=== PATIENT | female | born 1980 | race Caucasian/White ===

== ENCOUNTER → 2020-02-18 09:35 | Outpatient (BNVA) | payer OTHER, SELFPAY | PROVIDERS: Family Provider Family Medicine; Visit Provider Family Medicine | DX: Z20.828 Contact with and (suspected) exposure to other viral communicable diseases (principal) | CPT/HCPCS: 87635 ==

== ENCOUNTER → 2020-02-21 11:42 | Outpatient (BNVA) | payer OTHER, SELFPAY | PROVIDERS: Family Provider Family Medicine; Visit Provider Family Medicine | DX: Z11.59 Encounter for screening for other viral diseases (principal) | CPT/HCPCS: 87635 ==

== ENCOUNTER 2020-10-02 13:21 | Emergency (ER) | payer OTHER, SELFPAY ==
[2020-10-02 13:42] VITALS: BP 122/84; PULSE 83; RESP 16; TEMP 36.8; O2SAT 98; BMI 33.2
[2020-10-02 14:43] VITALS: BP 123/79; PULSE 81; O2SAT 100
--- NOTE | 2020-10-02 14:56 | W.ED.HA ---
HPI - Headache General: Chief Complaint: Headache Stated Complaint: headache Time Seen by Provider: 10/02/20 14:32 Source: patient, family, RN notes reviewed and old records reviewed Mode of arrival: ambulatory Limitations: no limitations History of Present Illness: HPI Narrative: Patient is a 40-year-old female with a history of migraines. She presents to the emergency department with complaint of a headache that is typical for her migraine but more severe than usual. Symptoms started this morning and it is frontal and radiates to the occipital region. She has nausea and vomiting, associated photo phobia and noise also makes it worse. She has taken 1 tablet of Imitrex with no improvement in her symptoms she is therefore here to be evaluated. MD elicited complaint: migraine Onset (ago): hour(s) Onset description: suddenly Location: frontal Severity: severe Quality & Timing: throbbing, constant, progressively worsening and similar to previous headaches Exacerbating factors: light and noise Relieving factors: nothing Context: occurred at rest Associated symptoms: Reports nausea, photophobia, sound sensitivity and vomiting; Deny chest pain, confusion, cough, diaphoresis, eye pain, eye redness, fever(s), lightheadedness, loss of vision, malaise, neck stiffness, numbness, paresthesias, pre-syncope, rash, seizures, short of breath, syncope or weakness Treatments prior to arrival: none Review of Systems General: Reports: 10 or more systems reviewed and unremarkable except in HPI and below Const: Denies: fever(s), malaise or diaphoresis Card: Denies: chest pain, lightheadedness, syncope or pre-syncope GI: Reports: nausea and vomiting Skin/Breast: Denies: rash Neuro: Denies: confusion PFSH ED PFSH: Social History (Reviewed 10/02/20 @ 15:12 by Lincoln Bernardo MD, [facility] [place]) Smoking and tobacco status: never smoked Alcohol intake: current Alcohol intake frequency: holidays/special occasions only Physical Exam Const: COMMON NORMALS: no acute distress, average body habitus, patient oriented x3, no limitations, healthy appearing, alert and well nourished HENMT: COMMON NORMALS: normocephalic, atraumatic and moist oral mucous membranes HEAD & SCALP: normocephalic and atraumatic Eye: COMMON NORMALS: Equal, round and reactive pupils present, EOMs intact bilaterally, conjunctivae normal and no scleral icterus CONJUNCTIVA: Yes conjunctivae normal PUPIL: Yes Equal, round and reactive pupils present DIRECT OPHTHALMOSCOPY: Yes photophobia Neck/C-Spine: COMMON NORMALS: no meningeal signs and no JVD Resp: COMMON NORMALS: normal respiratory effort, No retractions, No use of accessory muscles, clear to auscultation bilaterally and percussion normal AUSCULTATION: clear to auscultation bilaterally PERCUSSION: percussion normal Cardio: COMMON NORMALS: no JVD, regular rate, regular rhythm, S1 normal heart sound present, S2 normal heart sound present, No gallops present (Cardio), No clicks present (Cardio), No murmurs present (Cardio), No rub (Cardio) and Peripheral pulses 2+ throughout RATE: regular rate RHYTHM: regular rhythm HEART SOUNDS: S1 normal heart sound present and S2 normal heart sound present PERIPHERAL PULSES: Peripheral pulses 2+ throughout GI: COMMON NORMALS: Normal to inspection, nondistended, normoactive bowel sounds present, Soft to palpation, non-tender, No hepatosplenomegaly present, no masses and no bruits PALPATION: Yes Soft to palpation and Yes No hepatosplenomegaly present Extremity: COMMON NORMALS: normal to inspection, full ROM, capillary refill normal, no calf tenderness and no pedal edema Neuro: COMMON NORMALS: patient oriented x3 SENSORIUM/ORIENTATION: Yes alert MENINGEAL SIGNS: Yes no meningeal signs Skin: COMMON NORMALS: no rashes or lesions noted, no wounds, turgor normal, no jaundice, no petechiae and no mottling GENERAL SKIN EXAM: no rashes or lesions noted and turgor normal Course Vital Signs: Vital signs: Vital Signs Temperature 98.3 F 10/02/20 13:42 Pulse Rate 81 10/02/20 14:43 Respiratory Rate 16 10/02/20 13:42 Blood Pressure 123/79 10/02/20 14:43 Pulse Oximetry 100 10/02/20 14:43 MDM - Headache MDM Narrative: Medical decision making narrative: 40-year-old female patient with a history of migraines who presented to the emergency department with migraines. After my evaluation I ordered medications to see if that would help with her migraines, however the the patient was apparently upset with the nurse that she did not start her IV before another patient and left AGAINST MEDICAL ADVICE. I did not get a chance to talk to her to see if we could make her stay for treatment of her migraine. Medical Records: Attestation: I reviewed the patient's medical records. Discharge Plan Discharge Patient Disposition: Left Against Medical Advice Clinical Impression: Migraine Prescriptions: No Action alprazolam [Xanax] 0.25 mg tablet 0.25 mg PO TID PRNRF: 0 Referrals: Blayne Pennington MD [Primary Care Provider] - Coding Level of Care Code ED Superintendent Laundry for Chg Fwd Exam Comprehensive
--- NOTE | 2020-10-02 15:32 | PC.NURSE ---
patient refuses IV and with discussion doesnt want IM injections either. she states she just wants to leave. I attempted service recovery and patient continues to state she just wants to leave. Dr Bernardo is notified and an AMA is signed
== END 2020-10-02 15:34 | disposition left against medical advice (07) ==
PROVIDERS: Emergency Provider Family Medicine; PCP Family Medicine
DX: G43.909 Migraine, unspecified, not intractable, without status migrainosus (principal); Z53.21 Procedure and treatment not carried out due to patient leaving prior to being seen by health care provider
CPT/HCPCS: 99283

== ENCOUNTER 2021-05-29 14:38 | Outpatient (CLI) | payer OTHER, SELFPAY ==
--- NOTE | 2021-05-29 15:15 | MR_ITS ---
WS: [id number] MRI CERVICAL SPINE NONCONTRAST HISTORY: M54.2 - Cervicalgia COMPARISON: 11/03/2010 Technique: Multiplanar, multisequence noncontrast imaging of the cervical spine. Straightening of the normal cervical lordosis. Similar to the prior study. Disc spaces and vertebral body heights are well-maintained. No fractures or edema. Signal within the cervical cord is normal. Visualized posterior fossa is unremarkable. Craniocervical junction, C1 and C2 relationship, odontoid process and soft tissues are normal. C2-C3: Normal. C3-C4: Normal. C4-C5: Normal. C5-C6: Normal. C6-C7: Normal. C7-T1: Normal. Paraspinal soft tissue are normal. MR/MR cervical spin wo con* [id number] IMPRESSION: 1. No significant disc protrusion or stenosis. 2. Very mild straightening of the normal cervical spine may be due to position ing or some muscle spasm. No change since the prior study.
== END 2021-05-29 14:39 | disposition home or self-care (01) ==
PROVIDERS: PCP Family Medicine; Visit Provider Orthopaedic Surgery
DX: M54.2 Cervicalgia (principal)
CPT/HCPCS: 72141

== ENCOUNTER → 2022-09-24 08:42 | Outpatient (BNVA) | payer OTHER, SELFPAY | PROVIDERS: PCP Family Medicine; Visit Provider Clinical Nurse Specialist Adult Health | DX: E16.2 Hypoglycemia, unspecified (principal); R63.5 Abnormal weight gain; R61 Generalized hyperhidrosis | CPT/HCPCS: 80053; 83036; 84436; 84443; 84481; 85025 ==

== ENCOUNTER → 2024-06-03 10:26 | Outpatient (BNVA) | payer BC, SELFPAY | PROVIDERS: PCP Family Medicine; Visit Provider Registered Nurse Neonatal Intensive Care | DX: S90.30XA Contusion of unspecified foot, initial encounter (principal); W18.41XA Slipping, tripping and stumbling without falling due to stepping on object, initial encounter | CPT/HCPCS: 73630 ==

== ENCOUNTER 2024-08-15 06:59 | Outpatient (CLI) | payer BC, SELFPAY ==
--- NOTE | 2024-08-15 07:15 | MR_ITS ---
WS: [id number] MRI RIGHT SHOULDER NONCONTRAST TECHNIQUE: Sagittal T2, coronal T1, T2 and proton density imaging. Axial gradient PDE imaging. CLINICAL INFORMATION: shoulder injury COMPARISON: 2019 FINDINGS: Progressed moderate degenerative arthritis AC joint with small amount of fluid and edema. Subacromial spurring. Impingement on the distal supraspinatus with a small amount of subacromial subdeltoid fluid. Normal infraspinatus. Tiny interstitial tear supraspinatus deep to the acromion. Progressed mild chronic thinning of the supraspinatus. Normal infraspinatus. Normal teres minor. Normal subscapularis. Normal biceps tendon in the bicipital groove. Biceps labral anchor appears intact. Intra- articular biceps tendon appears intact. MR/MR shoulder RT wo con* [id number] IMPRESSION: 1. Progressed moderate degenerative arthritis AC joint with moderate downslopi ng acromion. Subacromial spurring impinges the distal supraspinatus. 2. Progressed chronic thinning of the supraspinatus with tendinopathy and tiny interstitial tear. No tendon retraction. 3. Rotator cuff otherwise appears intact. 4. Biceps tendon appears intact within the bicipital groove. 5. Biceps labral anchor appears intact. 6. No other acute findings.
== END 2024-08-15 07:00 | disposition home or self-care (01) ==
LOC: RAD 07:02
PROVIDERS: PCP Family Medicine; Visit Provider Family Medicine
DX: S49.91XA Unspecified injury of right shoulder and upper arm, initial encounter (principal); M19.011 Primary osteoarthritis, right shoulder; X58.XXXA Exposure to other specified factors, initial encounter
CPT/HCPCS: 73221

== ENCOUNTER → 2024-09-04 14:54 | Outpatient (BNVA) | payer BC, SELFPAY | PROVIDERS: PCP Family Medicine; Visit Provider Student in an Organized Health Care Education/Training Program | DX: M75.101 Unspecified rotator cuff tear or rupture of right shoulder, not specified as traumatic (principal); M19.019 Primary osteoarthritis, unspecified shoulder; M75.81 Other shoulder lesions, right shoulder | CPT/HCPCS: 73030 ==

== ENCOUNTER → 2024-10-15 08:37 | Outpatient (BNVA) | payer BC, SELFPAY | PROVIDERS: PCP Family Medicine; Visit Provider Family Medicine | DX: R51.9 Headache, unspecified (principal) | CPT/HCPCS: 86003; 86008 ==

== ENCOUNTER → 2024-11-09 08:23 | Outpatient (BNVA) | payer BC, SELFPAY | PROVIDERS: PCP Family Medicine; Visit Provider Family Medicine | DX: R73.03 Prediabetes (principal); Z00.00 Encounter for general adult medical examination without abnormal findings | CPT/HCPCS: 80053; 80061; 83036; 84443; 85025 ==

== ENCOUNTER 2024-12-13 08:49 | Day surgery (SDC) | payer BC, SELFPAY ==
[2024-12-13] VITALS (10 sets, daily range): BP systolic 104–159; BP diastolic 50–105; PULSE 66–82; RESP 14–20; TEMP 36.1–36.3; O2SAT 94–98; BMI 35.7
[2024-12-13] MEDS: ondansetron 2 mg/ML SDV 2 mL 4 MG IVP ×2 (09:32→13:48)
[2024-12-13] MEDS: acetaminophen 1,000 MG/100 ML PIGGYBACK 400 MG IV (09:35)
--- NOTE | 2024-12-13 09:40 | P.ANESASSM_ITS ---
Pre-Anesthetic Assessment Height/Weight: Height 5 ft Weight 183 lb Temp Pulse Resp BP Pulse Ox O2 Del Method 97.4 F L 81 16 159/105 95 Room Air 12/13/24 09:05 12/13/24 09:05 12/13/24 09:05 12/13/24 09:05 12/13/24 09:05 12/13/24 09:05 Preop Diagnosis: Rotator cuff tear Operation Date: 12/13/24 10:50 Proposed Procedures p Shoulder DIagnostic and Surgical Arthroscopy(Right) - Chao Kehinde, DO s Subacromial Decompression(Right) - Chao [place], DO s Acromioclavicular (AC) Joint Resection(Right) - Chao Kehind[place], DO s POSSIBLE Rotator Cuff Debridement Vs. Repair(Right) - Chao Kehinde, DO s POSSIBLE Biceps Tenotomy vs. Tenodesis(Right) - Chao Kehinde, DO Was Beta Juan David taken within 24 hours: N/A Was Clonidine taken within 24 hours: N/A Last intake: Intake Last Liquid Date 12/12/24 Last Liquid Time 23:00 Last Solid Date 12/12/24 Last Solid Time 18:00 Social No alcohol and No tobacco Exam alert, oriented x 3, clear to auscultation bilaterally and regular rate & rhythm Airway Submandibular: within normal limits Cervical ROM: within normal limits Mallampati: Class III Dentition: full Anesthetic Plan ASA status: 3 Anesthesia: General and Regional (specify below) Other: No prior issues with anesthesia NPO since yesterday evening Denies any cardiac or pulmonary issues however preop BP 159/105 LEESA, no treatment Anxiety Labs from 11/09/2024 reviewed acceptable for procedure Plan for GETA with preoperative block Medications/Allergies Home Medications ?Medication ?Instructions ?Recorded ?Confirmed ?Last Taken ?Type alprazolam 0.25 mg tablet (Xanax) 0.25 mg PO TID PRN A nxiety 07/30/20 12/13/24 Unknown History auto titrating c-pap 6-16 #1 ea 07/24/24 12/13/24 Unkn own Rx hydroxyzine HCl 10 mg tablet 10 mg PO TID PRN itching #30 tabs 10/04/24 12/13/24 Unknown Rx escitalopram oxalate 10 mg tablet 10 mg PO DAILY #30 t abs 11/13/24 12/13/24 12/12/24 Rx (Lexapro) Allergies Allergy/AdvReac Type Severity Reaction Status Date / Time prochlorperazine (From Allergy Severe angioedema Verified 11/06/24 12:59 Compazine) tramadol (From Ultram) Allergy Severe ADR-skin Verified 11/06/24 12:59 itching adhesive Allergy swelling Verified 11/06/24 12:59 Alpha-Gal Allergy ADR-Itching Verified 12/12/24 10:39 (Awuftyehx-Okcnw-0,3-Gala [facility] Anesthesia Medical History (Updated 11/13/24 @ 09:43 by Blayne Pennington MD) Prediabetes Diaphoresis Weight gain Minor depression Generalized anxiety disorder Migraines Surgical History Hx of exploratory laparotomy Hx of hysterectomy Hx of cholecystectomy Hx of lipoma Family History Other Cancer Hypertension Social History Smoking and tobacco/nicotine status: never used tobacco/nicotine Alcohol intake: former Substance/Drug Use: never
--- NOTE | 2024-12-13 09:57 | W.PM.OPSFHP ---
Same Day Surgery H&P Indication for Procedure/HPI DATE OF PROCEDURE: December 13, 2024 CHIEF COMPLAINT/INDICATIONFOR SURGICAL PROCEDURE: Right shoulder AC joint arthritis, subacromial impingement, rotator cuff tear partial PREOP DIAGNOSIS: Right shoulder AC joint arthritis, subacromial impingement, rotator cuff te PLANNED PROCEDURE: Operation Date: 12/13/24 10:50 Proposed Procedures p Shoulder DIagnostic and Surgical Arthroscopy(Right) - Chao Colemanatt, DO s Subacromial Decompression(Right) - Chao Colemanatt, DO s Acromioclavicular (AC) Joint Resection(Right) - Chao [place], DO s POSSIBLE Rotator Cuff Debridement Vs. Repair(Right) - Chao Colemanatt, DO s POSSIBLE Biceps Tenotomy vs. Tenodesis(Right) - Chao Colemanatt, DO Medications/Allergies* Home Medications ?Medication ?Instructions ?Recorded ?Confirmed ?Type alprazolam 0.25 mg tablet (Xanax) 0.25 mg PO TID PRN Anxiety 07/30/20 12/13/24 History Allergies/Adverse Reactions Allergy/AdvReac Type Severity Reaction Status Date / Time prochlorperazine (From Allergy Severe angioedema Verified 11/06/24 12:59 Compazine) tramadol (From Ultram) Allergy Severe ADR-skin Verified 11/06/24 12:59 itching adhesive Allergy swelling Verified 11/06/24 12:59 Alpha-Gal Allergy ADR-Itching Verified 12/12/24 10:39 (Khlusgkfc-Jwdeg-9,3-Gala Current Medications: Generic Name Dose Route Start Last Admin Trade Name Freq PRN Reason Stop Dose Admin Sodium Chloride 1,000 mls @ 30 mls/hr 12/13/24 09:00 12/13/24 09:31 Sodium Chloride 0.9% IV 12/14/24 08:59 30 mls/hr .Q24H BERRY Administration Ondansetron HCl 4 mg 12/13/24 08:56 12/13/24 09:32 Ondansetron 2 Mg/Ml Sdv 2 Ml IVP 4 mg Q5M PRN Administration NAUSEA AND VOMITING Pertinent History/Comorbid Conditions* Medical History (Updated 11/13/24 @ 09:43 by Blayne Pennington MD) Prediabetes Diaphoresis Weight gain Minor depression Generalized anxiety disorder Migraines Surgical History (Updated 08/18/23 @ 08:23 by Vicente Daniels NP) Hx of exploratory laparotomy Hx of hysterectomy Hx of cholecystectomy Hx of lipoma Family History (Updated 09/24/22 @ 08:24 by Vicente Daniels NP) Cancer Hypertension Social History Smoking and tobacco/nicotine status: never used tobacco/nicotine Alcohol intake: former Substance/Drug Use: never Pertinent Exam Findings alert, oriented x 3, operative site marked and procedure specific exam findings Please refer to anesthesia preoperative valuation for heart and lung findings Please refer to detailed orthopedic examination on 11/06/2024 listed below: Right Shoulder Exam: -Normal Cervical spine ROM -positive Spurling's -Full active and passive ROM -Pain with Archie's 4+, give way with weakness -Pain with ER with elbows at the side -strength ER 4/5 and IR 5/5 -Positive Hawkin's impingement -Positive [place]ap[place]'s -Positive Speed's -Positive crossover arm Neer's test -TTP over AC joint and anterior shoulder -TTP posterior shoulder -Positive Tinel's over cubital tunnel Recommendations Risks and benefits of procedure reviewed and Patient/family agree to proceed Surgery/Procedure today Other Plans: Plan to proceed to the OR today for right shoulder diagnostic and surgical arthroscopy with subacromial decompression, acromioclavicular joint resection, possible rotator cuff debridement versus repair, possible biceps tenotomy versus tenodesis. Patient understands the ins and outs of procedure the risk benefits complication alternatives of surgical nonsurgical treatment options. Understanding risk of surgery patient like to proceed with surgical invention. All questions answered at this time Coding Level of Care Code Acute Code for [facility] Fwd
--- NOTE | 2024-12-13 10:00 | ANES.PROC ---
Anesthesia Procedures Procedure/Date: 12/13/24 Nerve Block ^: Nerve Block 1: Main Anesthesia: other (100 mcg fentanyl and 2 mg Versed) Time Out Performed: Yes Consent: requested by attending/covering physician and from patient Laterality: Right Nerve block location: interscalene Anesthesia monitors applied: pulse oximetry, EKG, BP cuff and oxygen Nerve block position: supine Anesthetic Used: ropivicaine 0.5% Amount of anesthesia used (mL): 30 Ultrasound used to: recognize landmarks Nerve Stimulator Used?: Yes Interscalene/Femoral BLK: other needle (pjunk 4inch) Injection: neg aspiration of heme Patient Tolerated Procedure: well Complications: none Additional Comments: Decadron 4 mg added to block
[2024-12-13] MEDS: ceFAZolin 2,000 MG in sodium chloride 0.9% (plus) 50 ML 100 MG IV (10:06)
--- NOTE | 2024-12-13 12:04 | P.BOP_ITS ---
Date of Procedure: [December 13, 2024] Surgeon: [Dr. Busby DO] Expanded Duty Dental Assistant(s): [Berto Busby PA-C] Procedure(s) performed: [Right shoulder diagnostic surgical arthroscopy. Subscapularis debridement Labral debridement Subacromial decompression AC joint resection] Findings of the procedure(s): [Right shoulder glenohumeral joint arthritis grade 1?2, labral partial tearing, subscapularis partial tearing, subacromial bursitis and AC joint resection. Procedure went well and as planned.] Estimated blood loss: [10 mL] Specimen(s) removed: [N/A] Post-operative diagnosis: [Right shoulder glenohumeral joint arthritis grade 1?2, labral partial tearing, subscapularis partial tearing, subacromial bursitis and AC joint resection.]
--- NOTE | 2024-12-13 12:04 | P.OP_ITS ---
Operative Report Date of procedure: December 13, 2024 Surgeon: Chao Busby DO Asphalt Screed Operator: Berto Busby PA-C: PA was necessary for assistance in this case with shoulder positioning to execute the procedure, assistance with instrumentation, as well as implant fixation when necessary, assist with wound closure and dressing application. Procedure: Preoperative diagnosis: Right shoulder AC joint arthritis, subacromial impingement, rotator cuff tear partial Post-op diagnosis: Right shoulder glenohumeral joint arthritis grade 1?2, labral partial tearing, subscapularis partial tearing, subacromial bursitis and AC joint resection. Procedure done: Right?shoulder?diagnostic and surgical arthroscopy with subscapularis/rotator cuff debridement Right?shoulder?diagnostic and surgical arthroscopy labral debridement Right?shoulder?diagnostic and surgical arthroscopy acromioclavicular joint resection Right?shoulder?diagnostic and surgical arthroscopy subacromial decompression (acromioplasty and bursectomy) Surgeon: Chao Busby DO Estimated blood loss: 10mL IV fluids: See anesthesia record Implants: none Complications: None Condition: stable Disposition: same day Brief History: Patient been seen and worked up in the outpatient setting for?right?shoulder?pain.? Pt had an MRI which showed findings below.? Patient's failed conservative treatment and has weakness.? We talked about treatment options far as nonoperative and operative intervention.? We talked about risk benefits complication alternatives surgical nonsurgical treatment options.? Understanding risk of surgery she agrees to proceed with surgical intervention.? All questions have been answered at this time.? Patient elects proceed with surgery and consent obtained in the preoperative holding area for right shoulder diagnostic and surgical arthroscopy with subacromial decompression, acromioclavicular joint resection, possible rotator cuff debridement versus repair, possible biceps tenotomy versus tenodesis. MR/MR shoulder RT wo con* [id number] IMPRESSION: 1. Progressed moderate degenerative arthritis AC joint with moderate downsloping acromion. Subacromial spurring impinges the distal supraspinatus. 2. Progressed chronic thinning of the supraspinatus with tendinopathy and tiny interstitial tear. No tendon retraction. 3. Rotator cuff otherwise appears intact. 4. Biceps tendon appears intact within the bicipital groove. 5. Biceps labral anchor appears intact. 6. No other acute findings. Procedure: Patient seen evaluated in the preoperative holding area.? Consent reviewed and signed with patient.? Once again reviewed patient's MRI results as well as? planned surgical intervention.? Correct extremity marked.? Patient seen evaluated by anesthesia department received regional anesthesia.? Once ready for surgery was taken back to the operative suite.? Patient then subsequently underwent anesthesia per the anesthesia department was transported onto the OR table.? Patient was then placed into a lateral decubitus position with a beanbag and was appropriately secured to the bed.? All bony prominences well-padded.? Patient then had the?right?upper extremity was then prepped and draped in standard orthopedic fashion.? Patient received appropriate preoperative antibiotics.? Final timeout performed. The?right?upper extremity was then held in hanging from traction utilizing sterile technique.? Next started with standard diagnostic and surgical arthroscopy with posterior portal position introduced arthroscope into the glenohumeral joint.? Visualized the glenohumeral joint I then introduced a spinal needle within the rotator cuff interval to confirm appropriate anterior portal placement.? Once this was confirmed I then made my small incision and then introduced my arthroscopic shaver into the glenohumeral joint.? After thorough debridement patient was found to have intact superior labral complex as well as bicep tendon anchor there is no inflammation or instability of the bicep tendon as a result this was left alone no tenotomy or tenodesis was performed. Next I evaluated the subscapularis tendon which was intact which is partial tearing on the articular surface this is gently debrided with arthroscopic shaver. No repair needed or performed. ?Next there was posterior and superior labral partial tearing/fraying apprec iated I subsequently utilized a arthroscopic shaver and thermal wand to perform a labral debridement.? This point time I then visualized the glenohumeral joint.? The glenohumeral joint was found to have grade 1-2? chondromalacia throughout.? Axillary pouch was free of loose bodies from viewing the posterior portal.? Next a visualized the rotator cuff superiorly and there was found to be intact with no evidence of tear. This completed my work within the glenohumeral joint all fluid was suctioned free of the joint.? ?Next I reintroduced the arthroscope posteriorly.? And went to the subacromial space.? I established my lateral working portal. Thermal wand was then introduced laterally and then I subsequently performed extensive bursectomy of the subacromial space.? Patient had a large anterior bone spur.? At this point time I proceeded with my AC joint resection thermal wand was used and track to the anterior edge of the acromion and then tracked all the way to the AC joint.? Once identified the AC joint this was very arthritic in nature.? Thermal wand was placed anteriorly to establish appropriate plane for AC joint resection.? Once appropriate margins and anterior inferior and anterior capsule was released I then introduced arthroscopic shaver and a bur and performed AC joint resection of both the acromion to cope plane at the AC joint and a distal clavicle resection was then performed totaling 1 cm in size and was confirmed.? This completed my AC joint resection and I then introduced the arthroscopic shaver laterally while continuing to view posteriorly.? I then performed an acromioplasty to complete my subacromial decompression prior to evaluating the rotator cuff. Patient was found to have no evidence of rotator cuff tear shoulder was taken through extensive range of motion and thoroughly inspected and probed there was no full-thickness rotator cuff tear or appreciable bursal sided tear. ?I then switched the arthroscope to the lateral portal to confirm once again no rotator cuff tear from a different angle of view. ?Next I then introduced the arthroscopic shaver posteriorly to complete my subacromial decompression appropriate complaining all the way up to the lateral edge of the acromion.? This completed the surgery.? All fluid was suctioned from the?shoulder.? All instruments were removed.? The lateral incision was then closed with nylon stitches.? As well as the portal sites closed with portal nylon stitches.? Xeroform 4 x 4's ABD and tape was then applied to the?right?shoulder?and was placed into a? sling. Patient was then awakened from anesthesia and then taken back to PACU in stable condition.? Patient tolerated procedure without any issues. Disposition: Patient taken back in stable condition recovering well.? Dressings on in place clean dry and intact.? Will be nonweightbearing to the?right?upper extremity. Patient to follow-up with Ortho in the office in 2 weeks.? Patient will receive appropriate discharge instruction as well as pain medication postoperatively.? All questions answered.? We will contact the office for any questions or concerns.
--- NOTE | 2024-12-13 12:14 | PM.PACU ---
PACU note Narrative: Patient is a 43-year-old female that just underwent a right shoulder arthroscopy. Patient transferred to PACU in stable condition. Pain is well controlled. shoulder Dressing on , dry and in place. Patient's operative arm is in a shoulder immobilizer. Patient is awake and alert and able to respond to my questions accordingly. Patient's fingers are warm with good perfusion. Normal cap refill under 2 seconds. Unable to assess further range of motion in arm due to sling. Unable to assess sensation due to residual localized anesthetic. Exam: somnolent, arousable Disposition: discharged
--- NOTE | 2024-12-13 12:57 | PC.NURSE ---
pt received from PACU at 1229 for Phase 2 care for discharge. Pt was sleepy but would respond to verbal questions. Pt stated she was cold so this nurse placed 2 warm blankets while the INTERNET MARKETING ASSISTANT brought family to the room. The pt conveyed to family it felt like she could not breath. O2 was immediately placed and anesthesia was notified. Anesthesia ordered a nebulizer treatment with racemic epinephrine. pt given treatment and stated that she was breathing better when questioned. Anesthesia then ordered a duoneb treatment to compliment the racemic epinephrine pt vitals are stable pt is also more awake and is speaking with family.
--- NOTE | 2024-12-13 14:12 | ANE.PACU2 ---
Inpatient post-anesthesia follow up: Airway intact: Yes Vital signs: Temperature 97.2 F Pulse Rate 82 Respiratory Rate 20 Blood Pressure 104/75 Pulse Oximetry 96 Oxygen Delivery Me thod Room Air Oxygen Flow Rate 3 Fraction of Inspir ed Oxygen Hydration adequate: Yes Nausea and vomiting: No Pain level: 1 Mental status: Baseline Additional Comments: Patient initially had a bronchospasm and phase 2. Racemic epinephrine nebulizer given. DuoNeb given. Patient was doing much better shortly after. SpO2 adequate prior to discharge
== END 2024-12-13 14:12 | disposition home or self-care (01) ==
PROVIDERS: PCP Family Medicine; Visit Provider Student in an Organized Health Care Education/Training Program
PROC: (CPT 29805; principal; 2024-12-13 10:30)
PROC: (CPT 29826; 2024-12-13 10:30)
PROC: (CPT 23120; 2024-12-13 10:30)
PROC: (CPT 29823; 2024-12-13 10:30)
DX: M19.011 Primary osteoarthritis, right shoulder (principal); M75.41 Impingement syndrome of right shoulder; M75.111 Incomplete rotator cuff tear or rupture of right shoulder, not specified as traumatic; S43.431A Superior glenoid labrum lesion of right shoulder, initial encounter; X58.XXXA Exposure to other specified factors, initial encounter; M75.51 Bursitis of right shoulder; Z91.014 Allergy to mammalian meats; R73.03 Prediabetes; F41.8 Other specified anxiety disorders; G47.33 Obstructive sleep apnea (adult) (pediatric)
CPT/HCPCS: 29823; 29824; J0131; J0169; J0690; J1100; J1885; J2250; J2405; J3010; J7030; J9999

== ENCOUNTER 2025-01-05 21:11 | Emergency (ER) | payer BC, SELFPAY ==
[2025-01-05 21:13] VITALS: BP 163/91; PULSE 81; RESP 16; TEMP 36.6; O2SAT 98
--- OUTSIDE RECORDS SUMMARY | 2025-01-05 21:18 | XMS_ITS | Encounter Summary ---
Author Organization [facility] Address [address] [place] [address] Care Team Providers Care Certified Hand Therapist Name Role Phone Unavailable Primary Care Provider Unavailabl e Encounter Details Date Type Department Care Team (Latest Contact Info) Description 06/22/2006 Outpatient Historical [facility] OBDARLENEN-Baez [place] Arnie [address] [place] [address] Russell Denise MD [address] [phone] Supervision of Other Normal (Primary Dx) Social History Tobacco Use Types Packs/Day Years Used Date Smoking Tobacco: Never Assessed Comments Unknown Sex and Gender Information Value Date Recorded Sex Assigned at Not on file Legal Sex Female 4:03 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
--- OUTSIDE RECORDS SUMMARY | 2025-01-05 21:18 | XMS_ITS | Encounter Summary ---
Author Organization [facility] Address [address] [place] [address] Care Team Providers Care Cloud Architect Name Role Phone Unavailable Primary Care Provider Unavailabl e Encounter Details Date Type Department Care Team (Latest Contact Info) Description 12/27/2005 Outpatient Historical [facility] OBDARLENEN-Nestor [place] Arnie [address] [place] [address] Russell Denise MD [address] [phone] Routine Gynecological Examination (Primary Dx) Social History Tobacco Use Types Packs/Day Years Used Date Smoking Tobacco: Never Assessed Comments Unknown Sex and Gender Information Value Date Recorded Sex Assigned at Not on file Legal Sex Female 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
--- OUTSIDE RECORDS SUMMARY | 2025-01-05 21:18 | XMS_ITS | Encounter Summary ---
Author Organization [facility] Address [address] [place] [address] Care Team Providers Care Housesmith Name Role Phone Unavailable Primary Care Provider Unavailabl e Encounter Details Date Type Department Care Team (Latest Contact Info) Description 11/16/2004 Outpatient Historical [facility] OBDARLENEN-Nestor [place] Arnie [address] [place] [address] Russell Denise MD [address] [phone] SUPERVIS OTHER NORMAL PREG (Primary Dx) Social History Tobacco Use Types Packs/Day Years Used Date Smoking Tobacco: Never Assessed Comments Unknown Sex and Gender Information Value Date Recorded Sex Assigned at Not on file Legal Sex Female 4: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
--- OUTSIDE RECORDS SUMMARY | 2025-01-05 21:18 | XMS_ITS | Encounter Summary ---
Author Organization [facility] Address [address] [place] [address] Care Team Providers Care Assistant Child Care Teacher Name Role Phone Unavailable Primary Care Provider Unavailabl e Encounter Details Date Type Department Care Team (Latest Contact Info) Description 12/07/2004 Outpatient Historical [facility] OBDARLENEN-Baez [place] Arnie [address] [place] [address] Russell Denise MD [address] [phone] SUPERVIS OTHER NORMAL PREG (Primary Dx) Social History Tobacco Use Types Packs/Day Years Used Date Smoking Tobacco: Never Assessed Comments Unknown Sex and Gender Information Value Date Recorded Sex Assigned at Not on file Legal Sex Female 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
--- OUTSIDE RECORDS SUMMARY | 2025-01-05 21:18 | XMS_ITS | Encounter Summary ---
Author Organization [facility] Address [address] [place] [address] Care Team Providers Care Wind Turbine Engineer Name Role Phone Unavailable Primary Care Provider Unavailabl e Encounter Details Date Type Department Care Team (Latest Contact Info) Description 07/06/2006 Outpatient Historical [facility] OBDARLENEN-Baez [place] Arnie [address] [place] [address] Russell Denise MD [address] [phone] Supervision of Other Normal (Primary Dx) Social History Tobacco Use Types Packs/Day Years Used Date Smoking Tobacco: Never Assessed Comments Unknown Sex and Gender Information Value Date Recorded Sex Assigned at Not on file Legal Sex Female 4:03 AM HELP DESK COORDINATOR Gender Identity Not on file Sexual Orientation Not on file documented as of this encounter Plan of Treatment Not on file documented as of this encounter Visit Diagnoses Diagnosis Supervision of other normal - Primary documented in this encounter
--- OUTSIDE RECORDS SUMMARY | 2025-01-05 21:18 | XMS_ITS | Encounter Summary ---
Author Organization [facility] Address [address] [place] [address] Care Team Providers Care Nurseryman Assistant Name Role Phone Unavailable Primary Care Provider Unavailabl e Encounter Details Date Type Department Care Team (Latest Contact Info) Description 09/21/2004 Outpatient Historical [facility] OBDARLENEN-Baez [place] Arnie [address] [place] [address] Russell Denise MD [address] [phone] SUPERVIS OTHER NORMAL PREG (Primary Dx) Social History Tobacco Use Types Packs/Day Years Used Date Smoking Tobacco: Never Assessed Comments Unknown Sex and Gender Information Value Date Recorded Sex Assigned at Not on file Legal Sex Female 4: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
--- OUTSIDE RECORDS SUMMARY | 2025-01-05 21:18 | XMS_ITS | Encounter Summary ---
Author Organization [facility] Address [address] [place] [address] Care Team Providers Care Teacher Of The Deaf Name Role Phone Unavailable Primary Care Provider Unavailabl e Encounter Details Date Type Department Care Team (Latest Contact Info) Description 09/05/2006 Outpatient Historical [facility] OBDARLENEN-Baez [place] Arnie [address] [place] [address] Russell Denise MD [address] [phone] Routine Follow-Up (Primary Dx) Social History Tobacco Use Types Packs/Day Years Used Date Smoking Tobacco: Never Assessed Comments Unknown Sex and Gender Information Value Date Recorded Sex Assigned at Not on file Legal Sex Female 4:03 AM SHIRT PRESSER Gender Identity Not on file Sexual Orientation Not on file documented as of this encounter Plan of Treatment Not on file documented as of this encounter Visit Diagnoses Diagnosis Routine follow-up- Primary documented in this encounter
--- OUTSIDE RECORDS SUMMARY | 2025-01-05 21:18 | XMS_ITS | Encounter Summary ---
Author Organization [facility] Address [address] [place] [address] Care Team Providers Care Anthropometrist Name Role Phone Unavailable Primary Care Provider Unavailabl e Encounter Details Date Type Department Care Team (Latest Contact Info) Description 12/14/2004 Outpatient Historical [facility] OBDARLENEN-Baez [place] Arnie [address] [place] [address] Russell Denise MD [address] [phone] SUPERVIS OTHER NORMAL PREG (Primary Dx) Social History Tobacco Use Types Packs/Day Years Used Date Smoking Tobacco: Never Assessed Comments Unknown Sex and Gender Information Value Date Recorded Sex Assigned at Not on file Legal Sex Female 4: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
--- OUTSIDE RECORDS SUMMARY | 2025-01-05 21:18 | XMS_ITS | Encounter Summary ---
Author Organization [facility] Address [address] [place] [address] Care Team Providers Care Chemical Processing Laborer Name Role Phone Unavailable Primary Care Provider Unavailabl e Encounter Details Date Type Department Care Team (Latest Contact Info) Description 12/23/2004 Outpatient Historical [facility] OBDARLENEN-Baez [place] Arnie [address] [place] [address] Russell Denise MD [address] [phone] SUPERVIS OTHER NORMAL PREG (Primary Dx) Social History Tobacco Use Types Packs/Day Years Used Date Smoking Tobacco: Never Assessed Comments Unknown Sex and Gender Information Value Date Recorded Sex Assigned at Not on file Legal Sex Female 4:03 AM LADLE LINER HELPER Gender Identity Not on file Sexual Orientation Not on file documented as of this encounter Plan of Treatment Not on file documented as of this encounter Visit Diagnoses Diagnosis Supervision of other normal - Primary documented in this encounter
--- OUTSIDE RECORDS SUMMARY | 2025-01-05 21:18 | XMS_ITS | Encounter Summary ---
Author Organization [facility] Address [address] [place] [address] Care Team Providers Care Nut Former Name Role Phone Unavailable Primary Care Provider Unavailabl e Encounter Details Date Type Department Care Team (Latest Contact Info) Description 06/29/2004 Outpatient Historical [facility] OBDARLENEN-Baez [place] Arnie [address] [place] [address] Russell Denise MD [address] [phone] SUPERVIS OTHER NORMAL PREG (Primary Dx) Social History Tobacco Use Types Packs/Day Years Used Date Smoking Tobacco: Never Assessed Comments Unknown Sex and Gender Information Value Date Recorded Sex Assigned at Not on file Legal Sex Female 4:03 AM MAINTENANCE CONTROLLER Gender Identity Not on file Sexual Orientation Not on file documented as of this encounter Plan of Treatment Not on file documented as of this encounter Visit Diagnoses Diagnosis Supervision of other normal - Primary documented in this encounter
--- OUTSIDE RECORDS SUMMARY | 2025-01-05 21:18 | XMS_ITS | Encounter Summary ---
Author Organization [facility] Address [address] [place] [address] Care Team Providers Care Mold Capper Name Role Phone Unavailable Primary Care Provider Unavailabl e Encounter Details Date Type Department Care Team (Latest Contact Info) Description 07/25/2006 Outpatient Historical [facility] Russell Denise MD [address] [address] Other Threatened Labor, Antepartum (Primary Dx) Social History Tobacco Use Types Packs/Day Years Used Date Smoking Tobacco: Never Assessed Comments Unknown Sex and Gender Information Value Date Recorded Sex Assigned at Not on file Legal Sex Female 4:[address] Gender Identity Not on file Sexual Orientation Not on file documented as of this encounter Plan of Treatment Not on file documented as of this encounter Visit Diagnoses Diagnosis Other threatened labor, antepartum- Primary documented in this encounter
--- OUTSIDE RECORDS SUMMARY | 2025-01-05 21:18 | XMS_ITS | Encounter Summary ---
Author Organization [facility] Address [address] [place] [address] Care Team Providers Care Power Electronics Research Engineer Name Role Phone Unavailable Primary Care Provider Unavailabl e Encounter Details Date Type Department Care Team (Latest Contact Info) Description 12/27/2005 Outpatient Historical [facility] OBDARLENEN-Baez [place] Arnie [address] [place] [address] Russell Denise MD [address] [phone] Supervision of Other Normal (Primary Dx) Social History Tobacco Use Types Packs/Day Years Used Date Smoking Tobacco: Never Assessed Comments Unknown Sex and Gender Information Value Date Recorded Sex Assigned at Not on file Legal Sex Female 4:03 AM MOTHER HELPER Gender Identity Not on file Sexual Orientation Not on file documented as of this encounter Plan of Treatment Not on file documented as of this encounter Visit Diagnoses Diagnosis Supervision of other normal - Primary documented in this encounter
--- OUTSIDE RECORDS SUMMARY | 2025-01-05 21:18 | XMS_ITS | Encounter Summary ---
Author Organization [facility] Address [address] [place] [address] Care Team Providers Care Horizontal Resaw Operator Name Role Phone Unavailable Primary Care Provider Unavailabl e Encounter Details Date Type Department Care Team (Latest Contact Info) Description 11/23/2004 Outpatient Historical [facility] OBDARLENEN-Nestor [place] Arnie [address] [place] [address] Russell Denise MD [address] [phone] SUPERVIS OTHER NORMAL PREG (Primary Dx) Social History Tobacco Use Types Packs/Day Years Used Date Smoking Tobacco: Never Assessed Comments Unknown Sex and Gender Information Value Date Recorded Sex Assigned at Not on file Legal Sex Female 4:03 AM TRANSITION SOCIAL WORKER Gender Identity Not on file Sexual Orientation Not on file documented as of this encounter Plan of Treatment Not on file documented as of this encounter Visit Diagnoses Diagnosis Supervision of other normal - Primary documented in this encounter
--- OUTSIDE RECORDS SUMMARY | 2025-01-05 21:18 | XMS_ITS | Encounter Summary ---
Author Organization [facility] Address [address] [place] [address] Care Team Providers Care Soapstoner Name Role Phone Unavailable Primary Care Provider Unavailabl e Encounter Details Date Type Department Care Team (Latest Contact Info) Description 03/31/2006 Outpatient Historical [facility] OBDARLENEN-Baez [place] Arnie [address] [place] [address] Russell Denise MD [address] [phone] Supervision of Other Normal (Primary Dx) Social History Tobacco Use Types Packs/Day Years Used Date Smoking Tobacco: Never Assessed Comments Unknown Sex and Gender Information Value Date Recorded Sex Assigned at Not on file Legal Sex Female 4:03 AM PATENTS EXAMINER Gender Identity Not on file Sexual Orientation Not on file documented as of this encounter Plan of Treatment Not on file documented as of this encounter Visit Diagnoses Diagnosis Supervision of other normal - Primary documented in this encounter
--- OUTSIDE RECORDS SUMMARY | 2025-01-05 21:18 | XMS_ITS | Encounter Summary ---
Author Organization [facility] Address [address] [place] [address] Care Team Providers Care Barytes Grinder Name Role Phone Unavailable Primary Care Provider Unavailabl e Encounter Details Date Type Department Care Team (Latest Contact Info) Description 01/26/2006 Outpatient Historical [facility] OBDARLENEN-Baez [place] Arnie [address] [place] [address] Russell Denise MD [address] [phone] Supervision of Other Normal (Primary Dx) Social History Tobacco Use Types Packs/Day Years Used Date Smoking Tobacco: Never Assessed Comments Unknown Sex and Gender Information Value Date Recorded Sex Assigned at Not on file Legal Sex Female 4:03 AM CARPENTER MOLD Gender Identity Not on file Sexual Orientation Not on file documented as of this encounter Plan of Treatment Not on file documented as of this encounter Visit Diagnoses Diagnosis Supervision of other normal - Primary documented in this encounter
--- OUTSIDE RECORDS SUMMARY | 2025-01-05 21:18 | XMS_ITS | Encounter Summary ---
Author Organization [facility] Address [address] [place] [address] Care Team Providers Care Software Development Intern Name Role Phone Unavailable Primary Care Provider Unavailabl e Encounter Details Date Type Department Care Team (Late st Contact Info) Description 07/27/2004 Outpatient Historical [facility] Services-Baez [place] Arnie [address] [place] [address] Social History Tobacco Use Types Packs/Day Years Used Date Smoking Tobacco: Never Assessed Comments Unknown Sex and Gender Information Value Date Recorded Sex Assigned at Not on file Legal Sex Female 4:03 AM NATURAL GAS PLANT SUPERVISOR Gender Identity Not on file Sexual Orientation Not on file documented as of this encounter Plan of Treatment Not on file documented as of this encounter Visit Diagnoses Not on filedocumented in this encounter
--- OUTSIDE RECORDS SUMMARY | 2025-01-05 21:18 | XMS_ITS | Encounter Summary ---
Author Organization [facility] Address [address] [place] [address] Care Team Providers Care Visitor Services Technician Name Role Phone Unavailable Primary Care Provider Unavailabl e Encounter Details Date Type Department Care Team (Latest Contact Info) Description 10/19/2004 Outpatient Historical [facility] OBDARLENEN-Baez [place] Arnie [address] [place] [address] Russell Denise MD [address] [phone] SUPERVIS OTHER NORMAL PREG (Primary Dx) Social History Tobacco Use Types Packs/Day Years Used Date Smoking Tobacco: Never Assessed Comments Unknown Sex and Gender Information Value Date Recorded Sex Assigned at Not on file Legal Sex Female 4:03 AM JAI ALAI PLAYER Gender Identity Not on file Sexual Orientation Not on file documented as of this encounter Plan of Treatment Not on file documented as of this encounter Visit Diagnoses Diagnosis Supervision of other normal - Primary documented in this encounter
--- OUTSIDE RECORDS SUMMARY | 2025-01-05 21:18 | XMS_ITS | Encounter Summary ---
Author Organization [email or web address] Address [address] [place] [address] Care Team Providers Care Transcription Manager Name Role Phone Unavailable Primary Care Provider Unavailabl e Encounter Details Date Type Department Care Team (Latest Contact Info) Description 07/10/2006 Outpatient Historical [facility] Russell Denise MD [address] [address] Other Threatened Labor, Antepartum (Primary Dx) Social History Tobacco Use Types Packs/Day Years Used Date Smoking Tobacco: Never Assessed Comments Unknown Sex and Gender Information Value Date Recorded Sex Assigned at Not on file Legal Sex Female 4:03 AM AIR COMPRESSOR MECHANIC Gender Identity Not on file Sexual Orientation Not on file documented as of this encounter Plan of Treatment Not on file documented as of this encounter Visit Diagnoses Diagnosis Other threatened labor, antepartum- Primary documented in this encounter
--- OUTSIDE RECORDS SUMMARY | 2025-01-05 21:18 | XMS_ITS | Encounter Summary ---
Author Organization [facility] Address [address] [place] [address] Care Team Providers Care Systems Spec Name Role Phone Unavailable Primary Care Provider Unavailabl e Encounter Details Date Type Department Care Team (Latest Contact Info) Description 07/14/2006 Outpatient Historical [facility] Russell Denise MD [address] [address] Other Current Maternal Conditions Classifiable Elsewhere, Antepartum (Primary Dx) Social History Tobacco Use Types Packs/Day Years Used Date Smoking Tobacco: Never Assessed Comments Unknown Sex and Gender Information Value Date Recorded Sex Assigned at Not on file Legal Sex Female 4:03 AM MATHEMATICS LECTURER Gender Identity Not on file Sexual Orientation Not on file documented as of this encounter Plan of Treatment Not on file documented as of this encounter Visit Diagnoses Diagnosis Other current maternal conditions classifiable elsewhere, antepartum- Primary documented in this encounter
--- OUTSIDE RECORDS SUMMARY | 2025-01-05 21:18 | XMS_ITS | Clinical Summary ---
Author Organization [facility] Address [address] [facility] Attn: Epic Prelude ADT [place]ABAR [place] [address] Care Team Providers Care Irrigation Engineer Name Role Phone Unavailable Primary Care Provider Unavailabl e Allergies Active Allergy Reactions Criticality Noted Date Comments Adhesive Rash Low 07/30/2024 Tape 1 [id number] Prochlorperazine Unknown 07/30/2024 Compazine Tramadol Unknown 07/30/2024 Medications HYDROcodone-vanessa taminophen (NORCO) 5-325 mg tabletIndicatio ns:Acute left-sided thoracic back pain Take 1 Tablet by mouth every 4 hours as needed for Pain. Max Daily Amount: 6 Tablets 20 Tablet 07/30/2024 Active Social History Tobacco Use Types Packs/Day Years Used Date Smoking Tobacco: Never Alcohol Use Standard Drinks/Week Comments No 0 (1 standard drink = 0.6 oz pur e alcohol) Feeling Safe Answer Date Recorded Are you in a relationship wi th someone who hurts you emotionally and/or physically? No 07/30/2024 Comments Unknown Sex and Gender Information Value Date Recorded Sex Assigned at Not on file Legal Sex Female 3:30 PM DECORATIVE ENGRAVER Gender Identity Not on file Sexual Orientation Not on file Last Filed Vital Signs Vital Sign Reading Time Taken Comments Blood Pressure 153/97 07/30/2024 7:45 PM CDT Pulse 73 07/30/2024 7:45 PM CDT Temperature 36.4 C (97.5 F) 07/30/2024 7:45 PM CDT Respiratory Rate 19 07/30/2024 7:45 PM CDT Oxygen Saturation 100% 07/30/2024 7:45 PM CDT Inhaled Oxygen Concentration - - Weight 80.7 kg (178 lb) 07/30/2024 7:45 PM CDT Height 152.4 cm (5') 07/30/2024 7:45 PM CDT Body Mass Index 34.76 07/30/2024 7:45 PM CDT Plan of Treatment Health Maintenance Due Date Last Done Comments Pre-Diabetes and Diabetes Screening 1981 DTAP/TDAP/TD VACCINES (1 - Tdap) 2000 HEPATITIS B VACCINES (1 of 3 - 19+ 3-dose series) 09/08 HPV/Cotest (21-29) 2002 HPV VACCINES (1 - 3-dose SCDM series) 2008 HPV/Cotest (30-65) 10/02/2011 CERVICAL CANCER SCREENING 12/10/2011 PAP SMEAR 12/10/2011 12/09/2008 BREAST CANCER SCREENING 2021 INFLUENZA VACCINE (#1) 2024 COVID-19 Vaccine (2 season) 10/08/202401/2021 Insurance [facility] [facility] MEDICAID [id number] OUT OF STATE
--- OUTSIDE RECORDS SUMMARY | 2025-01-05 21:18 | XMS_ITS | Encounter Summary ---
Author Organization [facility] Address [address] [place] [address] Care Team Providers Care Light Adjuster Name Role Phone Unavailable Primary Care Provider Unavailabl e Encounter Details Date Type Department Care Team (Latest Contact Info) Description 08/24/2004 Outpatient Historical [facility] OBDARLENEN-Baez [place] Arnie [address] [place] [address] Russell Denise MD [address] [phone] SUPERVIS OTHER NORMAL PREG (Primary Dx) Social History Tobacco Use Types Packs/Day Years Used Date Smoking Tobacco: Never Assessed Comments Unknown Sex and Gender Information Value Date Recorded Sex Assigned at Not on file Legal Sex Female 4:03 AM TELECOMMUNICATIONS FIELD ENGINEER Gender Identity Not on file Sexual Orientation Not on file documented as of this encounter Plan of Treatment Not on file documented as of this encounter Visit Diagnoses Diagnosis Supervision of other normal - Primary documented in this encounter
--- OUTSIDE RECORDS SUMMARY | 2025-01-05 21:18 | XMS_ITS | Encounter Summary ---
Author Organization [facility] Address [address] [place] [address] Care Team Providers Care Supervisor Whipped Topping Name Role Phone Unavailable Primary Care Provider Unavailabl e Encounter Details Date Type Department Care Team (Latest Contact Info) Description 11/30/2004 Outpatient Historical [facility] OBDARLENEN-Baez [place] Arnie [address] [place] [address] Russell Denise MD [address] [phone] SUPERVIS OTHER NORMAL PREG (Primary Dx) Social History Tobacco Use Types Packs/Day Years Used Date Smoking Tobacco: Never Assessed Comments Unknown Sex and Gender Information Value Date Recorded Sex Assigned at Not on file Legal Sex Female 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
--- OUTSIDE RECORDS SUMMARY | 2025-01-05 21:18 | XMS_ITS | Encounter Summary ---
Author Organization [facility] Address [address] [place] [address] Care Team Providers Care Auto Specialty Services Manager Name Role Phone Unavailable Primary Care Provider Unavailabl e Encounter Details Date Type Department Care Team (Late st Contact Info) Description 09/04/2004 Outpatient Historical [facility] OBDARLENEN-Baez [place] Harlan [address] [place] [address] Guido Avila MD [address] [facility] [address] [place], [place] [address] UTER DYSTOCIA NOS-ANTEPA (Primary Dx) Social History Tobacco Use Types Packs/Day Years Used Date Smoking Tobacco: Never Assessed Comments Unknown Sex and Gender Information Value Date Recorded Sex Assigned at Not on file Legal Sex Female 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
--- OUTSIDE RECORDS SUMMARY | 2025-01-05 21:18 | XMS_ITS | Encounter Summary ---
Author Organization [facility] Address [address] [place] [address] Care Team Providers Care Maintenance Shop Laborer Name Role Phone Unavailable Primary Care Provider Unavailabl e Encounter Details Date Type Department Care Team (Latest Contact Info) Description 06/08/2006 Outpatient Historical [facility] OBDARLENEN-Baez [place] Arnie [address] [place] [address] Russell Denise MD [address] [phone] Supervision of Other Normal (Primary Dx) Social History Tobacco Use Types Packs/Day Years Used Date Smoking Tobacco: Never Assessed Comments Unknown Sex and Gender Information Value Date Recorded Sex Assigned at Not on file Legal Sex Female 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
--- OUTSIDE RECORDS SUMMARY | 2025-01-05 21:18 | XMS_ITS | Encounter Summary ---
Author Organization [facility] Address [address] [place] [address] Care Team Providers Care Marine Mammal Trainer Name Role Phone Unavailable Primary Care Provider Unavailabl e Encounter Details Date Type Department Care Team (Latest Contact Info) Description 01/27/2005 Outpatient Historical [facility] OBDARLENEN-[place] Arnie [address] [place] [address] Russell Denise MD [address] [phone] ROUT POSTPART FOLLOW-UP (Primary Dx) Social History Tobacco Use Types Packs/Day Years Used Date Smoking Tobacco: Never Assessed Comments Unknown Sex and Gender Information Value Date Recorded Sex Assigned at Not on file Legal Sex Female 4:03 AM INPATIENT PHARMACIST Gender Identity Not on file Sexual Orientation Not on file documented as of this encounter Plan of Treatment Not on file documented as of this encounter Visit Diagnoses Diagnosis Routine follow-up- Primary documented in this encounter
--- OUTSIDE RECORDS SUMMARY | 2025-01-05 21:18 | XMS_ITS | Encounter Summary ---
Author Organization [facility] Address [address] [place] [address] Care Team Providers Care Wire Inserter Name Role Phone Unavailable Primary Care Provider Unavailabl e Encounter Details Date Type Department Care Team (Latest Contact Info) Description 07/21/[address] [facility] OBDARLENEN-Baez [place] Arnie [address] [place] [address] Russell Denise MD [address] [phone] Supervision of Other Normal (Primary Dx) Social History Tobacco Use Types Packs/Day Years Used Date Smoking Tobacco: Never Assessed Comments Unknown Sex and Gender Information Value Date Recorded Sex Assigned at Not on file Legal Sex Female 4:03 AM TITLE EXAMINER Gender Identity Not on file Sexual Orientation Not on file documented as of this encounter Plan of Treatment Not on file documented as of this encounter Visit Diagnoses Diagnosis Supervision of other normal - Primary documented in this encounter
--- OUTSIDE RECORDS SUMMARY | 2025-01-05 21:18 | XMS_ITS | Data Portability ---
Author Organization [place] - Poncho Connelly [facility] Amy Boyd [facility] Address [address] [address] Care Team Providers Care Disability Advocate Name Role Phone CINDY THRASHERSON Primary Care Provider Assessment Encounter Date Assessment Date Assessment LastModified by Organization Details LastModified Time 05/05/2022 05/05/2022 Take medication as directed. Muscle relaxers may cause drowsiness. We will order lower back xr (2-3 views of the L spine) for further evaluation. Patient will complete xr tomorrow (05/06/22). We will call with these results. Discussed PT for lower back pain. Patient will call if she would like order. Tolerated injection well. F/U PRN with primary care provider or return to walk-in, if symptoms do not improve or worsen. Proceed to ER with any sx of saddle anesthesia or cauda equina symptoms. Verbalized understanding . [email or web address] Not available 05/09/2022 13:52:11 Plan of Treatment Reminders Order Date Submit Date Provider Last Modified By Organization Details Last Modified Time Details Appointments None recorded. Lab None recorded. Referral None recorded. Procedures None recorded. Surgeries None recorded. Imaging None recorded. Medication Orders Augmentin 875 mg-125 mg tablet 2022 023 [facility] [place], [address] [place], [address], 3 00:15:28 betamethaso ne acetate and sodium phos 6 mg/mL suspension for injection 2022 023 [email or web address] Not available 17:51:27 prednisone 20 mg tablet 2022 023 [facility] [place], [facility] [place], [address], 3 18:19:16 chlorzoxazo ne 500 mg tablet 2022 023 [email or web address] [facility] [place], [facility] [place], [address], 18:53:27 Patient TargetsNo targets recorded. Patient Instructions Encounter Date Encounter Id Patient Instructions Last Modified By Organization Details Last Modified Time 05/05/20223 [facility]: [email or web address] Not available 05/05/2022 18:53:27 Reason for Referral None Reported. Problems Name Problem SNOMED Code Status Onset Date Resolution Date Notes Provider Name and Address Organization Details Recorded Time Pain of right hand 70098134182 9109 Active 2021 RIGHT HAND PAIN; Recorded 2 1:38PM by Xi Rubin, Office Visit; Promoted; acuity set as *; Not Available [facility] 3 03:14:05 History of tubal ligation 725672970 Active 2021 Tubal Ligation; 2 1:38PM by Xi Rubin, Office Visit; Promoted; acuity set as *; Not Available [facility] 3 03:14:05 Contusion of hand 6002780 Active 2021 CONTUSION OF RIGHT HAND, INITIAL ENCOUNTER ; Steven n: She was given education for RICE therapy and use of warm Epsom salt soaks to help encourage ROM. She is to take over the counter Tylenol and Ibuprofen as needed for pain and discomfor t. Limit hyperexte nsion of the fingers and lifting the right hand only. Xrays are negative for obvious fracture or deformity . Will send for over read. F/U PRN.; Recorded 2 1:38PM by Xi Rubin, Office Visit; Promoted; acuity set as *; Not Available [facility] 3 03:14:06 Acute sinusitis 33715443 Active 2022 Perez Rodriguez MD [address] [place] [address] [place], [address] , [facility] 3 18:11:38 Problem Notes None recorded. Procedures Surgical History Date Name Laterality Status Provider Name and Address Organization Details Recorded Time 05/05/2022 Joint Inj Kenalog- Shoulder, Hip, Knee completed MARILEE BOYER, DATA MIGRATION CONSULTANT [address] [place], [address], [facility] 05/09/2022 13:56:40 Imaging Results None recorded. Procedure Notes None recorded. Medical Equipment None Reported. Allergies Allergen ID Allergen Name Allergen Category Reaction Reaction Severity Criticality Documentation Date Start Date Code Code System Note Provider Name and Address Organization Details Recorded Time 05056 Tape 1 X5YD medicatio n other Not available Not available 09/04/2022 React ion: *SURG ICAL GLUE; Comme nt: Recor ded 04/17 1:38P M by Wendy Rubin , Offic e Visit ; Promo mayra; Signi abilio ce: *; Reaso n: Drug aller gy; ; Not Available [facility] 3 02:25:09 82719 Compazine medicatio n Not available Not available Not available 09/04/2022 59530 6 RxNorm Comme nt: Recor ded 04/17 1:38P M by Wendy Rubin , Offic e Visit ; Promo mayra; Nikolai knox ce: *; ; Not Available [facility] 3 02:25:10 80812 tramadol medicatio n Not available Not available Not available 01/06/2023 14649 RxNorm MACIEL jim [facility] 3 17:50:59 Medications Name Sig Start Date Stop Date Status Note LastModified by Organization Details LastModified Time Augmentin 875 mg-125 mg tablet Take 1 tablet every 12 hours by oral route for 10 days. 2022 active Not Available Not Available Not Avai lable chlorzoxaz one 500 mg tablet Take 0.5 tablets 3 times a day by oral route as needed for 14 days. 2022 active Not Available Not Available Not Avai lable prednisone 20 mg tablet Take 1 tablet every day by oral route as directed for 8 days. 01/06 completed Not Available Not Available Not Available betamethas one acetate and sodium phos 6 mg/mL suspension for injection Take 2 mL by injection route. 01/06 completed large joint inject ion. Not Available Not Available Not Available amitriptyl ine 25 mg tablet Take 1 tablet every day by oral route. active Not Available Not Available No t Available ondansetro n 4 mg disintegra ting tablet Place 2 tablets twice a day by transling ual route. active Not Available Not Available No t Available Vitals Date Recorded Body height Body mass index (BMI) Body weight Oxygen saturation Heart rate Respiratory rate Body temperature Systolic And Diastolic Provider Name and Address Organization Details Last Updated DateTime 3 152.4 cm 33.9 kg/m2 69064.5 8 g 99 % 77 /min 20 /min 97.3 [degF] 128/86 mm[Hg] PETERSON GAXIOLA [facility] 3 18:13:50 Date Recorded Body mass index (BMI) Body weight Body temperature Oxygen saturation Heart rate Systolic And Diastolic Provider Name and Address Organization Details Last Updated DateTime 3 34.5 kg/m2 79309.0 6 g 98.1 [degF] 99 % 81 /min 130/84 mm[Hg] MACIEL ADAIR [facility] 3 17:50:45 Date Recorded Body height Respiratory rate Provider N josé miguel and Address Organization Details Last Updated DateTime 01/06/2023 152.4 cm 20 /min PAM GERMANG [facility] 01/06/2023 17:43:43 Social History None recorded. Functional Status None recorded. Mental Status None recorded. Family History Nothing Reported. Medical History No medical history recorded. Gynecological HistoryNo gynecological history recorded. Obstetrics History GPAL:G 0 P 0 0 0 0 Past Encounters Encounter ID Performer Location Encounter Start Date Encounter Closed Date Diagnosis/Indication Diagnosis SNOMED-CT Code Diagnosis ICD10 Code Diagnosis IMO Codes Diagnosis Note [id number] ([facility]) [address] [place] [address] 05/05/2022 17:45:36 05/16/2022 16:49:36 Low back pain 456021330 M54.50 Lumbago with sciatica 20 2217513 M54.42 [id number] Perez Rodriguez MD [place] ([facility]) [address] [place] [address] 01/06/2023 17:39:42 01/11/2023 12:53:17 Acute sinusitis 08468611 J01.00 Likely bacterial sinusitis based on exam and history. discussed supportive care including OTC meds and sinus rinses. we will start abx. Health Concerns Section Related Observation LastModified by Organization Detai ls LastModified Time None Recorded Concern Status LastModified by Organization Details LastModified Time None Recorded Advance Directives Directive None Recorded Payers Insurance Date Sequence Insurance Name Policy Number Policy Alvarado Covered Member ID Alvarado Member ID Guarantor Name 01/11/2023 1 [facility] [id number] [facility] Notes Date Note Type Note Provider Name and Address Organization Details Recorded Time 3 text/html Back PainReported by PatientHPIFor location, patient reportsradiation to buttocks rightandradiation to leg rightbut reportslumbar right. For severity, patient reportsworsening,interfer es with sleep, andinterferes with work. For associated symptoms, patient reportstingling. For quality, patient reportssharp,shooting, andstabbing. For duration, patient reports3 days. For timing, patient reportsacuteandfirst episode. For aggravating factors, patient reportstwisting,flexing back,extending back,pushing,pulling,reac tootie,straining, andsitting.ROS as noted in the HPI PATIENT REPORTS BENDING SLIGHTLY TO WASH HER HANDS IN THE BATHROOM SINK 4 DAYS WHEN SHE FELT A SHARP POP IN HER LOWER BACK AND THE PAIN SENT HER TO THE FLOOR. PATIENT STATES SHE WENT TO A CHIROPRACTOR 3 DAYS AGO AND NOW THE PAIN IS SHARPER AND SHOOTING AROUND TO HER RIGHT HIP AND DOWN HER RIGHT LEG TO HER KNEE. IRVING MORENO [address] [place], [address], [facility] 05/09/2022 13:56:57 3 text/html Sinusitis/AllergyReported by PatientHPIFor associated symptoms, patient reportscough __,headache __,facial pain __,sinus pain __,sore throat, andeye itchingbut reportsno fever.ROS as noted in the HPI Perez Rodriguez MD [address] [place], [address], [facility] 01/09/2023 08:56:29 OBGyn Episode No OBEpisode recorded.
--- OUTSIDE RECORDS SUMMARY | 2025-01-05 21:18 | XMS_ITS | Encounter Summary ---
Author Organization [facility] Address [address] [place] [address] Care Team Providers Care Acds Block 1 Operator Name Role Phone Unavailable Primary Care Provider Unavailabl e Encounter Details Date Type Department Care Team (Latest Contact Info) Description 12/06/2002 Outpatient Historical [facility] Oral and Maxillo Surgery[address] [place] [address] Juan J Houston, RA NO ADDRESS ON FILE TOOTH POSITION ANOMALY (Primary Dx) Social History Tobacco Use Types Packs/Day Years Used Date Smoking Tobacco: Never Assessed Comments Unknown Sex and Gender Information Value Date Recorded Sex Assigned at Not on file Legal Sex Female 4:03 AM SOCIAL MEDIA INTERN Gender Identity Not on file Sexual Orientation Not on file documented as of this encounter Plan of Treatment Not on file documented as of this encounter Visit Diagnoses Diagnosis 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
--- OUTSIDE RECORDS SUMMARY | 2025-01-05 21:18 | XMS_ITS | Encounter Summary ---
Author Organization [facility] Address [address] [place] [address] Care Team Providers Care Employee Service Officer Name Role Phone Unavailable Primary Care Provider Unavailabl e Encounter Details Date Type Department Care Team (Latest Contact Info) Description 08/01/2006 Outpatient Historical [facility] OBDARLENEN-Baez [place] Arnie [address] [place] [address] Russell Denise MD [address] [phone] Supervision of Other Normal (Primary Dx) Social History Tobacco Use Types Packs/Day Years Used Date Smoking Tobacco: Never Assessed Comments Unknown Sex and Gender Information Value Date Recorded Sex Assigned at Not on file Legal Sex Female 4:03 AM PSYCHIATRIC CNS Gender Identity Not on file Sexual Orientation Not on file documented as of this encounter Plan of Treatment Not on file documented as of this encounter Visit Diagnoses Diagnosis Supervision of other normal - Primary documented in this encounter
--- OUTSIDE RECORDS SUMMARY | 2025-01-05 21:18 | XMS_ITS | Encounter Summary ---
Author Organization [facility] Address [address] [place] [address] Care Team Providers Care Transfer Car Operator Name Role Phone Unavailable Primary Care Provider Unavailabl e Encounter Details Date Type Department Care Team (Latest Contact Info) Description 07/27/2004 Outpatient Historical [facility] OBDARLENEN-Baez [place] Arnie [address] [place] [address] Russell Denise MD [address] [phone] SUPERVIS OTHER NORMAL PREG (Primary Dx) Social History Tobacco Use Types Packs/Day Years Used Date Smoking Tobacco: Never Assessed Comments Unknown Sex and Gender Information Value Date Recorded Sex Assigned at Not on file Legal Sex Female 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
--- OUTSIDE RECORDS SUMMARY | 2025-01-05 21:18 | XMS_ITS | Encounter Summary ---
Author Organization [facility] Address [address] [place] [address] Care Team Providers Care Train Reservation Clerk Name Role Phone Unavailable Primary Care Provider Unavailabl e Encounter Details Date Type Department Care Team (Latest Contact Info) Description 05/09/2006 Outpatient Historical [facility] OBDARLENEN-Baez [place] Arnie [address] [place] [address] Russell Denise MD [address] [phone] Supervision of Other Normal (Primary Dx) Social History Tobacco Use Types Packs/Day Years Used Date Smoking Tobacco: Never Assessed Comments Unknown Sex and Gender Information Value Date Recorded Sex Assigned at Not on file Legal Sex Female 4: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
--- OUTSIDE RECORDS SUMMARY | 2025-01-05 21:18 | XMS_ITS | Encounter Summary ---
Author Organization [facility] Address [address] [place] [address] Care Team Providers Care High School Foreign Language Teacher Name Role Phone Unavailable Primary Care Provider Unavailabl e Encounter Details Date Type Department Care Team (Late st Contact Info) Description 12/24/2004 Inpatient Historical HIS IN BED Russell Denise MD [address] [facility] [address] [place], [place] [phone] NORMAL DELIVERY (Primary Dx) Social History Tobacco Use Types Packs/Day Years Used Date Smoking Tobacco: Never Assessed Comments Unknown Sex and Gender Information Value Date Recorded Sex Assigned at Not on file Legal Sex Female 4:03 AM CLINICAL INFORMATICS PHYSICIAN Gender Identity Not on file Sexual Orientation Not on file documented as of this encounter Plan of Treatment Not on file documented as of this encounter Procedures Procedure Name Priority Date/Time Associated Diagnosis Comments CBC WITHOUT DIFFERENTIAL Routine 12/25/2004 11:18 AM CLINICAL INFORMATICS PHYSICIAN CBC WITHOUT DIFFERENTIAL Routine 12/24/2004 9:03 AM CLINICAL INFORMATICS PHYSICIAN documented in this encounter Results * (ABNORMAL) CBC WITHOUT DIFFERENTIAL (12/25/2004 11:18 AM CLINICAL INFORMATICS PHYSICIAN) WBC 18.0(H) 4.5 - 11.0 K/ul INTERFACE SYSTEM RBC 3.80(L) 4.20 - 5.40 Mil/ul INTERFACE SYSTEM HEMOGLOBIN 9.3(L) 12.0 - 16.0 g/dL INTERFACE SYSTEM HEMATOCRIT 29.7(L) 36.0 - 46.0 % INTERFACE SYSTEM MCV 78.2(L) 84.0 - 103.0 Fl INTERFACE SYSTEM MCH 24.5(L) 27.0 - 34.0 pg INTERFACE SYSTEM MCHC 31.3 30.0 - 35.0 g/dL INTERFACE SYSTEM RDW 16.4(H) 11.0 - 14.5 % INTERFACE SYSTEM PLATELETS 171 140 - 440 K/ul INTERFACE SYSTEM MPV 10.5 8.9 - 12.8 Fl INTERFACE SYSTEM NEUTROPHILS 86.3(H) 42.2 - 75.2 % INTERFACE SYSTEM LYMPHOCYTES 9.1(L) 24.0 - 44.0 % INTERFACE SYSTEM MONOCYTES 4.2 2.0 - 10.0 % INTERFACE SYSTEM EOSINOPHILS 0.3 0.0 - 7.0 % INTERFACE SYSTEM BASOPHILS 0.1 0.0 - 1.0 % INTERFACE SYSTEM NEUTROPHIL ABSOLUTE 15.6(H) 2.0 - 8.0 K/uL INTERFACE SYSTEM LYMPHOCYTE ABSOLUTE 1.6 1.2 - 4.0 K/ul INTERFACE SYSTEM MONOCYTE ABSOLUTE 0.8(H) 0.1 - 0.6 K/ul INTERFACE SYSTEM EOSINOPHIL ABSOLUTE 0.1 0.0 - 0.7 K/ul INTERFACE SYSTEM BASOPHILS ABSOLUTE 0.0 0.0 - 0.2 K/ul INTERFACE SYSTEM 12/25/2004 11:1 8 AM CLINICAL INFORMATICS PHYSICIAN us Russell Denise MD HEMATOLOGY ORDERABLES Final Resu lt INTERFACE SYSTEM Refer to clinic/hospital department * (ABNORMAL) CBC WITHOUT DIFFERENTIAL (12/24/2004 9:03 AM CLINICAL INFORMATICS PHYSICIAN) WBC 11.1(H) 4.5 - 11.0 K/ul INTERFACE SYSTEM RBC 4.27 4.20 - 5.40 Mil/ul INTERFACE SYSTEM HEMOGLOBIN 10.4(L) 12.0 - 16.0 g/dL INTERFACE SYSTEM HEMATOCRIT 33.3(L) 36.0 - 46.0 % INTERFACE SYSTEM MCV 78.0(L) 84.0 - 103.0 Fl INTERFACE SYSTEM MCH 24.4(L) 27.0 - 34.0 pg INTERFACE SYSTEM MCHC 31.2 30.0 - 35.0 g/dL INTERFACE SYSTEM RDW 16.2(H) 11.0 - 14.5 % INTERFACE SYSTEM PLATELETS 187 140 - 440 K/ul INTERFACE SYSTEM MPV 11.6 8.9 - 12.8 Fl INTERFACE SYSTEM NEUTROPHILS 76.5(H) 42.2 - 75.2 % INTERFACE SYSTEM LYMPHOCYTES 16.5(L) 24.0 - 44.0 % INTERFACE SYSTEM MONOCYTES 5.6 2.0 - 10.0 % INTERFACE SYSTEM EOSINOPHILS 1.3 0.0 - 7.0 % INTERFACE SYSTEM BASOPHILS 0.1 0.0 - 1.0 % INTERFACE SYSTEM NEUTROPHIL ABSOLUTE 8.5(H) 2.0 - 8.0 K/uL INTERFACE SYSTEM LYMPHOCYTE ABSOLUTE 1.8 1.2 - 4.0 K/ul INTERFACE SYSTEM MONOCYTE ABSOLUTE 0.6 0.1 - 0.6 K/ul INTERFACE SYSTEM EOSINOPHIL ABSOLUTE 0.2 0.0 - 0.7 K/ul INTERFACE SYSTEM BASOPHILS ABSOLUTE 0.0 0.0 - 0.2 K/ul INTERFACE SYSTEM 12/24/2004 9:03 AM CLINICAL INFORMATICS PHYSICIAN us Russell Denise MD HEMATOLOGY ORDERABLES Final Resu lt INTERFACE SYSTEM Refer to clinic/hospital department documented in this encounter Visit Diagnoses Diagnosis Normal delivery- Primary documented in this encounter
--- OUTSIDE RECORDS SUMMARY | 2025-01-05 21:18 | XMS_ITS | Encounter Summary ---
Author Organization [facility] Address [address] [place] [address] Care Team Providers Care Director Of Business Services Name Role Phone Unavailable Primary Care Provider Unavailabl e Encounter Details Date Type Department Care Team (Late st Contact Info) Description 09/30/2006 Outpatient Historical [facility] OBJuliet Paulsonnn Arnie [address] [place] [address] Emerson Gage MD [address] [place] [address] Follow-Up Examination, Following Unspecified Surgery (Primary Dx) Social History Tobacco Use Types Packs/Day Years Used Date Smoking Tobacco: Never Assessed Comments Unknown Sex and Gender Information Value Date Recorded Sex Assigned at Not on file Legal Sex Female 4:03 AM CLOTHING WORKER Gender Identity Not on file Sexual Orientation Not on file documented as of this encounter Plan of Treatment Not on file documented as of this encounter Visit Diagnoses Diagnosis Follow-up examination, following unspecified surgery- Primary documented in this encounter
--- OUTSIDE RECORDS SUMMARY | 2025-01-05 21:18 | XMS_ITS | Encounter Summary ---
Author Organization [facility] Address [address] [place] [address] Care Team Providers Care Event Designer Name Role Phone Unavailable Primary Care Provider Unavailabl e Encounter Details Date Type Department Care Team (Latest Contact Info) Description 02/22/2005 Outpatient Historical [facility] OBDARLENEN-Nestor [place] [address] [place] [address] Russell Denise MD [address] [phone] INFECT DIS NEC-POSTPART (Primary Dx) Social History Tobacco Use Types Packs/Day Years Used Date Smoking Tobacco: Never Assessed Comments Unknown Sex and Gender Information Value Date Recorded Sex Assigned at Not on file Legal Sex Female 4:03 AM LIGHT COIL WINDER Gender Identity Not on file Sexual Orientation Not on file documented as of this encounter Plan of Treatment Not on file documented as of this encounter Visit Diagnoses Diagnosis Other specified maternal infectious and parasitic disease, condition or complication(647.84)- Primary Other specified maternal infectious and parasitic disease, condition or complication documented in this encounter
--- OUTSIDE RECORDS SUMMARY | 2025-01-05 21:18 | XMS_ITS | Clinical Summary ---
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 Gender Identity Not on file Sexual Orientation Not on file Last Filed Vital Signs Vital Sign Reading Time Taken Comments Blood Pressure 114/72 12/09/2008 11:58 AM DIRECTOR OF VETERANS AFFAIRS Pulse - - Temperature - - Respiratory Rate - - Oxygen Saturation - - Inhaled Oxygen Concentration - - Weight 70.8 kg (156 lb) 12/09/2008 11:58 AM DIRECTOR [employer] VETERANS AFFAIRS Height 152.4 cm (5') 12/09/2008 11:58 AM DIRECTOR OF VETERANS AFFAIRS Body Mass Index 30.47 12/09/2008 11:58 AM DIRECTOR OF VETERANS AFFAIRS Plan of Treatment Health Maintenance Due Date Last Done Comments DTAP/TDAP/TD VACCINES (1 - Tdap) 2000 HEPATITIS B VACCINES (1 of 3 - 19+ 3-dose series) 09/08 HPV/Cotest (21-29) 2002 HPV VACCINES (1 - 3-dose SCDM series) 2008 HPV/Cotest (30-65) 10/02/2011 CERVICAL CANCER SCREENING 12/10/2011 PAP SMEAR 12/10/2011 12/09/2008 BREAST CANCER SCREENING 2021 INFLUENZA VACCINE (#1) 2024 Procedures Procedure Name Priority Date/Time Associated Diagnosis Comments CERV/VAG CYTOPATH, THIN PREP Routine 12/09/2008 3:51 PM DIRECTOR OF VETERANS AFFAIRS from Last 3 Months or Most Recently Relevant to Health Maintenance Results * CERVICAL OR VAGINAL CYTOPATH, THIN PREP (12/09/2008 3:51 PM DIRECTOR OF VETERANS AFFAIRS) PATHOLOGY/CYT OLOGY REPORT [facility] Path[facility] [address] [facility] [address] Patient: NADEEM WHITE Accn No: [id number] , [id number] Collected: 12/09/2008 3:51:00 PM CYTOLOGY DOOR TECHNICIAN FINAL REPORT - - THIN PREP PAP History Specimen Source: Endocervical LMP: 11/20/08 Last Pap Date: None Provided Specimen Adequacy Satisfactory for interpretation. The smear shows sufficient numbers of endocervical or metaplastic cells. Diagnosis NEGATIVE FOR INTRAEPITHELIAL LESION OR MALIGNANCY. (Previously noted as Within Normal Limits) Quotation Clerk/ CAREN Pathologist: 12/19/08 Completed by: SLAVA MARTIN BSCT(ASCP) (Electronically signed by) 12/19/08 Comment Routine follow-up is suggested. Important Info About PAP Smears HPV Testing off the Thin Prep vial can be done as a means of further evaluating the significance of a Thin Prep Report. For information about ordering the HPV test phone Cytology at . Treatment or follow-up recommendations (if any) that are contained within this report are based upon general recommendations as contained in 2001 Consensus Guidelines For Cervical Cytological Abnormalities SHAE: May 31, 2001, and are provided as a general guideline rather than as a specific recommendation. Final decisions about the most appropriate treatment and follow-up should be made on an individualized basis by the treating physician in consultation with his/her patient. [facility] 12/09/2008 3:51 PM DIRECTOR OF VETERANS AFFAIRS us Russell Denise MD PATHOLOGY/CYTOLOGY ORDERABLES Ed ited INTERFACE SYSTEM Refer to clinic/hospital department [facility] CLIA# [id number] [address] [place] [address] from Last 3 Months or Most Recently Relevant to Health Maintenance Insurance [employer] PL[employer] SFD PPO
--- OUTSIDE RECORDS SUMMARY | 2025-01-05 21:18 | XMS_ITS | Encounter Summary ---
Author Organization [facility] Address [address] [place] [address] Care Team Providers Care Steam And Power Superintendent Name Role Phone Unavailable Primary Care Provider Unavailabl e Encounter Details Date Type Department Care Team (Late st Contact Info) Description 08/04/2006 Inpatient Historical HIS IN BED Russell Denise MD [address] [facility] [address] [place], [place] [phone] Normal Delivery (Primary Dx) Social History Tobacco Use Types Packs/Day Years Used Date Smoking Tobacco: Never Assessed Comments Unknown Sex and Gender Information Value Date Recorded Sex Assigned at Not on file Legal Sex 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 Gender Identity Not on file Sexual Orientation Not on file documented as of this encounter Plan of Treatment Not on file documented as of this encounter Procedures Procedure Name Priority Date/Time Associated Diagnosis Comments CBC WITHOUT DIFFERENTIAL Routine 08/04/2006 4:07 PM CDT BLOOD GAS CORD ARTERIAL Routine 08/04/2006 3:22 AM CDT CBC WITHOUT DIFFERENTIAL Routine 08/04/2006 12:55 AM CDT documented in this encounter Results * (ABNORMAL) CBC WITHOUT DIFFERENTIAL (08/04/2006 4:07 PM CDT) WBC 11.4(H) 4.5 - 11.0 K/ul INTERFACE SYSTEM RBC 4.16(L) 4.20 - 5.40 Mil/ul INTERFACE SYSTEM HEMOGLOBIN 9.9(L) 12.0 - 16.0 g/dL INTERFACE SYSTEM HEMATOCRIT 30.9(L) 36.0 - 46.0 % INTERFACE SYSTEM MCV 74.3(L) 84.0 - 103.0 Fl INTERFACE SYSTEM MCH 23.8(L) 27.0 - 34.0 pg INTERFACE SYSTEM MCHC 32.0 30.0 - 35.0 g/dL INTERFACE SYSTEM RDW 17.2(H) 11.0 - 14.5 % INTERFACE SYSTEM PLATELETS 136(L) 140 - 440 K/ul INTERFACE SYSTEM MPV 11.0 8.9 - 12.8 Fl INTERFACE SYSTEM NEUTROPHILS 81.7(H) 42.2 - 75.2 % INTERFACE SYSTEM LYMPHOCYTES 12.9(L) 24.0 - 44.0 % INTERFACE SYSTEM MONOCYTES 4.3 2.0 - 10.0 % INTERFACE SYSTEM EOSINOPHILS 1.0 0.0 - 7.0 % INTERFACE SYSTEM BASOPHILS 0.1 0.0 - 1.0 % INTERFACE SYSTEM NEUTROPHIL ABSOLUTE 9.3(H) 2.0 - 8.0 K/ul INTERFACE SYSTEM LYMPHOCYTE ABSOLUTE 1.5 1.2 - 4.0 K/ul INTERFACE SYSTEM MONOCYTE ABSOLUTE 0.5 0.1 - 0.6 K/ul INTERFACE SYSTEM EOSINOPHIL ABSOLUTE 0.1 0.0 - 0.7 K/ul INTERFACE SYSTEM BASOPHILS ABSOLUTE 0.0 0.0 - 0.2 K/ul INTERFACE SYSTEM 08/04/2006 4:07 PM CDT Russell Denise MD HEMATOLOGY ORDERABLES Edited Performing Organization Address City/State/[facility] Co de Phone Number INTERFACE SYSTEM Refer to clinic/hospital department * (ABNORMAL) BLOOD GAS CORD ARTERIAL (08/04/2006 3:22 AM CDT) SPECIMEN DESCRIPTION Arterial INTERFACE SYSTEM Comment:Sample not collected by [facility] PH CORD ARTERIAL 7.29 7.18 - 7.38 Unit INTERFACE SYSTEM PCO2 CORD ARTERIAL 55(H) 32 - 36 mmHg INTERFACE SYSTEM PO2 CORD ARTERIAL 19 mmHg INTERFACE SYSTEM HCO3 CORD ARTERIAL 26.4 17.0 - 27.0 mmol/l INTERFACE SYSTEM BASE EXCESS CORD ARTERIAL 0 -2 - 3 mmol/l INTERFACE SYSTEM O2 SAT EST CORD ARTERIAL 24 % INTERFACE SYSTEM TCO2 CORD 28 mmol/l INTERFACE SYSTEM 08/04/2006 3:22 AM CDT Russell Denise MD ABG ORDERABLES Edited INTERFACE SYSTEM Refer to clinic/hospital department * (ABNORMAL) CBC WITHOUT DIFFERENTIAL (08/04/2006 12:55 AM CDT) WBC 9.9 4.5 - 11.0 K/ul INTERFACE SYSTEM RBC 4.33 4.20 - 5.40 Mil/ul INTERFACE SYSTEM HEMOGLOBIN 10.2(L) 12.0 - 16.0 g/dL INTERFACE SYSTEM HEMATOCRIT 32.4(L) 36.0 - 46.0 % INTERFACE SYSTEM MCV 74.8(L) 84.0 - 103.0 Fl INTERFACE SYSTEM MCH 23.6(L) 27.0 - 34.0 pg INTERFACE SYSTEM MCHC 31.5 30.0 - 35.0 g/dL INTERFACE SYSTEM RDW 17.2(H) 11.0 - 14.5 % INTERFACE SYSTEM PLATELETS 157 140 - 440 K/ul INTERFACE SYSTEM MPV 11.2 8.9 - 12.8 Fl INTERFACE SYSTEM NEUTROPHILS 72.1 42.2 - 75.2 % INTERFACE SYSTEM LYMPHOCYTES 20.4(L) 24.0 - 44.0 % INTERFACE SYSTEM MONOCYTES 6.6 2.0 - 10.0 % INTERFACE SYSTEM EOSINOPHILS 0.8 0.0 - 7.0 % INTERFACE SYSTEM BASOPHILS 0.1 0.0 - 1.0 % INTERFACE SYSTEM NEUTROPHIL ABSOLUTE 7.1 2.0 - 8.0 K/ul INTERFACE SYSTEM LYMPHOCYTE ABSOLUTE 2.0 1.2 - 4.0 K/ul INTERFACE SYSTEM MONOCYTE ABSOLUTE 0.7(H) 0.1 - 0.6 K/ul INTERFACE SYSTEM EOSINOPHIL ABSOLUTE 0.1 0.0 - 0.7 K/ul INTERFACE SYSTEM BASOPHILS ABSOLUTE 0.0 0.0 - 0.2 K/ul INTERFACE SYSTEM 08/04/2006 12:5 5 AM CDT us Russell Denise MD HEMATOLOGY ORDERABLES Edited INTERFACE SYSTEM Refer to clinic/hospital department documented in this encounter Visit Diagnoses Diagnosis Normal delivery- Primary documented in this encounter
--- OUTSIDE RECORDS SUMMARY | 2025-01-05 21:18 | XMS_ITS | Encounter Summary ---
Author Organization [facility] Address [address] [place] [address] Care Team Providers Care Drafting Layout Worker Name Role Phone Unavailable Primary Care Provider Unavailabl e Encounter Details Date Type Department Care Team (Latest Contact Info) Description 05/29/2004 Outpatient Historical [facility] OBDARLENEN-Baez [place] Arnie [address] [place] [address] Russell Denise MD [address] [phone] SUPERVIS OTHER NORMAL PREG (Primary Dx) Social History Tobacco Use Types Packs/Day Years Used Date Smoking Tobacco: Never Assessed Comments Unknown Sex and Gender Information Value Date Recorded Sex Assigned at Not on file Legal Sex Female 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
--- OUTSIDE RECORDS SUMMARY | 2025-01-05 21:18 | XMS_ITS | Encounter Summary ---
Author Organization [facility] Address [address] [place] [address] Care Team Providers Care Bedspread Seamer Name Role Phone Unavailable Primary Care Provider Unavailabl e Encounter Details Date Type Department Care Team (Latest Contact Info) Description 11/02/2004 Outpatient Historical [facility] OBDARLENEN-Baez [place] Arnie [address] [place] [address] Russell Denise MD [address] [phone] SUPERVIS OTHER NORMAL PREG (Primary Dx) Social History Tobacco Use Types Packs/Day Years Used Date Smoking Tobacco: Never Assessed Comments Unknown Sex and Gender Information Value Date Recorded Sex Assigned at Not on file 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
--- OUTSIDE RECORDS SUMMARY | 2025-01-05 21:18 | XMS_ITS | Encounter Summary ---
Author Organization [facility] Address [address] [place] [address] Care Team Providers Care Valve Repairer Name Role Phone Unavailable Primary Care Provider Unavailabl e Encounter Details Date Type Department Care Team (Latest Contact Info) Description 07/13/2006 Outpatient Historical [facility] OBDARLENEN-Baez [place] Arnie [address] [place] [address] Russell Denise MD [address] [phone] Supervision of Other Normal (Primary Dx) Social History Tobacco Use Types Packs/Day Years Used Date Smoking Tobacco: Never Assessed Comments Unknown Sex and Gender Information Value Date Recorded Sex Assigned at Not on file Legal Sex Female 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
--- OUTSIDE RECORDS SUMMARY | 2025-01-05 21:18 | XMS_ITS | Encounter Summary ---
Author Organization [facility] Address [address] [place] [address] Care Team Providers Care Home Administrator Name Role Phone Unavailable Primary Care Provider Unavailabl e Encounter Details Date Type Department Care Team (Latest Contact Info) Description 03/31/2006 Outpatient Historical [facility] Maternal and Medicine-Amirah bang [address] [place] [address] Segundo Ludwig II, MD [address] [place] [address] Screening for Malformation Using Ultrasonics (Primary Dx) Social History Tobacco Use Types Packs/Day Years Used Date Smoking Tobacco: Never Assessed Comments Unknown Sex and Gender Information Value Date Recorded Sex Assigned at Not on file Legal Sex Female 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
--- NOTE | 2025-01-05 21:23 | XRR_ITS ---
PROCEDURE INFORMATION: Exam: XR Right Shoulder Exam date and time: 01/05/2025 9:24 PM Age: 44 years old Clinical indication: Pain; Prior surgery; Surgery date: <1 month; Surgery type: Right shoulder arthroscopy; Additional info: Injury, pop, S/P rotator cuff surgery 3 weeks ago. TECHNIQUE: Imaging protocol: Radiologic exam of the right shoulder. Views: 2 or more views. COMPARISON: CR XR shoulder RT min 2V* [id number] 09/04/2024 2:56 PM FINDINGS: Bones/joints: No bony abnormalities. Glenohumeral joint appears unremarkable. Possible small effusion. Soft tissues: Normal. XR/XR shoulder RT min 2V* [id number] IMPRESSION: No bony abnormalities. Possible small effusion.
[2025-01-05] MEDS: orphenadrine 30 mg/mL Inj 2 mL 60 MG IM (21:33)
--- NOTE | 2025-01-05 21:47 | W.ED.EXTPRO ---
HPI - Extremity Problem General: Chief complaint: Extremity Injury, Upper Stated complaint: 3 wk post op. shoulder popped and severe muscle pn Time Seen by Provider: 01/05/25 21:17 History of Present Illness: Patient is a 44-year-old female status post arthroscopic right shoulder repair that presents to the ED after she was washing her hair, and she noted her shoulder popped, and had severe pain. This occurred just prior to arrival. She is holding her arm in adduction on the right side. She complains of pain on the lateral proximal humerus. No fevers. No sick contact. Associated symptoms: Deny chest pain or fever(s) Related Data Home Medications ?Medication ?Instructions ?Recorded ?Confirmed alprazolam 0.25 mg tablet (Xanax) 0.25 mg PO TID PRN Anxiety 07/30/20 12/26/24 Previous Rx's ?Medication ?Instructions ?Recorded auto titrating c-pap 6-16 #1 ea 07/24/24 hydroxyzine HCl 10 mg tablet 10 mg PO TID PRN itching #30 tabs 10/04/24 escitalopram oxalate 10 mg tablet 10 mg PO DAILY #30 tabs 11/13/24 (Lexapro) hydrocodone 5 mg-acetaminophen 325 1 tab PO Q6H PRN pain 5 days #20 12/26/24 mg tablet tabs diclofenac sodium 75 mg 75 mg PO BID PRN pain #30 tabs 01/05/25 tablet,delayed release methocarbamol 750 mg tablet 750 mg PO Q8H PRN muscle spasm #30 01/05/25 tabs Allergies Allergy/AdvReac Type Severity Reaction Status Date / Time prochlorperazine (From Allergy Severe angioedema Verified 12/26/24 14:19 Compazine) tramadol (From Ultram) Allergy Severe ADR-skin Verified 12/26/24 14:19 itching adhesive Allergy swelling Verified 12/26/24 14:19 Alpha-Gal Allergy ADR-Itching Verified 12/26/24 14:19 ([id number],3-Gala Review of Systems Const: Denies: fever(s) or chills Card: Denies: chest pain or dyspnea on exertion Resp: Denies: dyspnea, productive cough or wheezing GI: Denies: abdominal pain, nausea or vomiting : Denies: difficulty voiding Musc: Reports: extremity pain, joint pain, joint swelling and limited range of motion; Denies: neck pain, extremity swelling, joint redness, joint warmth or joint stiffness Skin/Breast: Denies: changes in skin color or dry skin Neuro: Denies: numbness in extremities or weakness in extremities Psych: Denies: anxiety Omid/Lymph: Denies: easy bruising or easy bleeding PFSH ED PFSH: Medical History (Updated 01/05/25 @ 21:53 by LETI Vega) Prediabetes Diaphoresis Weight gain Minor depression Generalized anxiety disorder Migraines Surgical History (Updated 12/26/24 @ 14:45 by LETI Lopez) Hx of exploratory laparotomy Hx of hysterectomy Hx of cholecystectomy Hx of lipoma Family History Other Cancer Hypertension Social History Smoking and tobacco/nicotine status: never used tobacco/nicotine Alcohol intake: former Substance/Drug Use: never Physical Exam Const: COMMON NORMALS: no acute distress and alert Chest: COMMONS NORMALS: normal inspection of the chest and normal palpation of entire chest wall Resp: COMMON NORMALS: normal respiratory effort, No retractions and clear to auscultation bilaterally AUSCULTATION: clear to auscultation bilaterally Cardio: COMMON NORMALS: Peripheral pulses 2+ throughout PERIPHERAL PULSES: Peripheral pulses 2+ throughout GI: COMMON NORMALS: Normal to inspection, nondistended, normoactive bowel sounds present, Soft to palpation, non-tender and No hepatosplenomegaly present PALPATION: Yes Soft to palpation and Yes No hepatosplenomegaly present Extremity: NARRATIVE EXTREMITY EXAM: Right arm held in adduction. No range of motion due to pain. Tenderness over humeral head. Neuro: SENSORIUM/ORIENTATION: Yes alert Skin: GENERAL SKIN EXAM: dry skin Course Vital Signs: Vital signs: Vital Signs Temperature 97.9 F 01/05/25 21:13 Pulse Rate 81 01/05/25 21:13 Respiratory Rate 16 01/05/25 21:13 Blood Pressure 163/91 01/05/25 21:13 Pulse Oximetry 98 01/05/25 21:13 Oxygen Delivery Me thod Room Air 01/05/25 21:13 MDM - Extremity (Nontraumatic) Medical Decision Making Patient is a pleasant 44-year-old female recent status post right shoulder arthroscopy, awaiting physical therapy evaluation on 01/10, presented when washing her hair, and felt a shoulder pop. On x-ray on my view, she appeared to have AC separation to right shoulder. Official reading shows possible small effusion, no bony abnormalities. She is holding her arm in adduction. Plan is to place her back in her shoulder immobilizer at night as well so her arm cannot go above her head times next 2 days, and have her contact Dr. Busby for further evaluation. Patient's pain was controlled with Toradol and Norflex. Medical Records I reviewed the patient's medical records. Lab Data Radiology Impressions Shoulder X-Ray 01/05/25 21:23 IMPRESSION: No bony abnormalities. Possible small effusion. XR interpretation done by ED provider, pending radiology final review Discharge Plan Discharge Patient Disposition: Home Clinical Impression: Separation of right acromioclavicular joint Condition: Stable Prescriptions: New methocarbamol 750 mg tablet 750 mg PO Q8H PRN (Reason: muscle spasm) Qty: 30 0RF diclofenac sodium 75 mg tablet,delayed release (DR/EC) 75 mg PO BID PRN (Reason: pain) Qty: 30 0RF No Action alprazolam [Xanax] 0.25 mg tablet 0.25 mg PO TID PRN (Reason: Anxiety) hydroxyzine HCl 10 mg tablet 10 mg PO TID PRN (Reason: itching) Qty: 30 11RF (DME) auto titrating c-pap 6-16 See Rx Instructions .Route .MEDSUPPLY Qty: 1 0RF Rx Instructions: mask and supplies as needed escitalopram oxalate [Lexapro] 10 mg tablet 10 mg PO DAILY Qty: 30 11RF hydrocodone-acetaminophen 5-325 mg tablet 1 tab PO Q6H PRN (Reason: pain) 5 Days Qty: 20 0RF Discharge Orders: Discharge ED (Routine); Ordered 01/05/25 Ordered By: Veronica Randolph Referrals: Blayne Pennington MD [Primary Care Provider, Family Practice] Chao Busby DO [Physician, Orthopedics] Discharge Diet: Usual diet Discharge Activity: Limit activity as instructed Patient Instructions: Acromioclavicular Separation (ED), Patient Portal & Syed Instructions Activity Restrictions/Additional Instructions: - Keep yourself in a immobilizer even when you sleep. - Medication at pharmacy: Diclofenac, methocarbamol. Diclofenac is an anti-inflammatory, and Robaxin is a powerful muscle relaxers. You may cut your Robaxin in half to help reduce sedation effects and make sure you tolerate. - Please ice this area. - Call Dr. Busby on Tuesday for advisement and follow-up appointment. - Please return to the ED with worsening pain, redness, fever greater than 100.4 Gy [facility] by [facility] Thank you for choosing [facility] for your healthcare needs today. You have been screened and evaluated and felt safe for discharge. Health conditions do change or evolve sometimes and as such it is important that you follow up with your Primary Doctor to be re checked, 3-5 days is a general good time frame for follow up. You are always welcome to return to the ED for re assessment if your symptoms are worsening or you have new concerns Print Language: Mexican Coding Level of Care Code ED Cinema Or Theatre Manager for William Luciano
== END 2025-01-05 22:10 | disposition home or self-care (01) ==
PROVIDERS: Emergency Provider Physician Assistant; PCP Family Medicine
DX: S43.121A Dislocation of right acromioclavicular joint, 100%-200% displacement, initial encounter (principal); X58.XXXA Exposure to other specified factors, initial encounter
CPT/HCPCS: 73030; 96372; 99284; J1885; J2360

== ENCOUNTER 2025-01-07 05:00 | Outpatient (RCR) | payer BC, SELFPAY | END 2025-02-06 23:59 | disposition home or self-care (01) | LOC: SPT 05:00 | PROVIDERS: PCP Family Medicine; Visit Provider Physician Assistant | DX: M75.01 Adhesive capsulitis of right shoulder (principal) | CPT/HCPCS: 97110; 97161 ==

== ENCOUNTER → 2025-01-08 09:34 | Outpatient (BNVA) | payer BC, SELFPAY | PROVIDERS: PCP Family Medicine; Visit Provider Student in an Organized Health Care Education/Training Program | DX: Z98.890 Other specified postprocedural states (principal) | CPT/HCPCS: 73030 ==

== ENCOUNTER → 2025-01-22 10:25 | Outpatient (BNVA) | payer BC, MEDICAID, SELFPAY | PROVIDERS: PCP Family Medicine; Visit Provider Nurse Practitioner Women's Health | DX: R53.83 Other fatigue (principal); R63.5 Abnormal weight gain; E89.40 Asymptomatic postprocedural ovarian failure | CPT/HCPCS: 82306; 82607; 82670; 82728; 82746; 83540 ==